=== PATIENT | female | born 1975 | race Caucasian/White ===

== ENCOUNTER 2017-12-16 15:21 | Inpatient (IN) | payer OTHER ==
[2017-12-16 19:07] VITALS: BMI 36.0
--- NOTE | 2017-12-16 20:57 | HP ---
COWS - Scale Resting Pulse: 1= ID [id number] Sweatin= Chills/Flushing Restless Observation: 1= Difficult to Sit Still Pupil Size: 1= Pupils >than Normal Bone or Joint Aches: 1= Mild Discomfort Runny Nose/ Eye Tearin= Runny Nose/Eyes GI Upset > 30mins: 3= Vomiting/Diarrhea Tremor Observation: 2= Slight Tremor Visible Yawning Observation: 2= >3x During Session Anxiety or Irritability: 2=Irritable/Anxious Goose Flesh Skin: 0=Smooth Skin COWS Score: 16 Admission ROS [facility] - [facility] Chief Complaint: " I need to get clean for my son" opioid withdrawal symptoms Allergies/Adverse Reactions: Allergies Allergy/AdvReac Type Severity Reaction Status Date / Time Fish Containing Products Allergy Verified 12/16/17 19:33 peanut Allergy Verified 12/16/17 19:33 Penicillins Allergy Verified 12/16/17 19:33 History of Present Illness: Patient is a 42 yo female with hx of cocaine, IV heroin, and nicotine dependence is here seeking detox. Last detox 3 years ago at [facility]. PMHX: seizure d/o , anemia,asthma, depression, anxiety, bipolar, PTSD, schizo. Denies suicidal / homicidal ideation, reports hx of suicide attempt at 18 yrs old by laceration wrist. Currently denies auditory or visual hallucinations, reports has had hallucinations in the past. Longest period of sobriety eight years. Denies hx of overdose. Reference #: [id number] Others' Prescriptions Patient Name: Kym Hampton Date: 1975 Address: [address] [place] [address] Sex: Female Rx Written Rx Dispensed Drug Quantity Days Supply Prescriber Name 12/02/2017 12/02/2017 alprazolam 1 mg tablet 90 30 Alejandro Tsai MD 12/02/2017 12/02/2017 zolpidem tartrate 5 mg tablet 30 30 Alejandro Tsai MD Exam Limitations: No Limitations - Ebola screening Have you traveled outside of the country in the last 21 days: No (N) Have you had contact with anyone from an Ebola affected area: No Have you been sick,other than usual withdrawal symptoms: No Do you have a fever: No - Review of Systems Constitutional: Chills, Other (weight gain) EENT: reports: No Symptoms Reported Respiratory: reports: No Symptoms reported Cardiac: reports: No Symptoms Reported GI: reports: Diarrhea, Nausea, Poor Appetite, Vomiting : reports: Dysuria, Hematuria, Other (urinary leakage) Musculoskeletal: reports: Back Pain, Joint Pain Integumentary: reports: No Symptoms Reported Neuro: reports: Headache, Seizure (last seizure one week ago), Tingling (b/t tip fingertips), Weakness Endocrine: reports: Increased Thirst Hematology: reports: No Symptoms Reported Psychiatric: reports: Orientated x3, Anxious, Depressed Other Systems: Reviewed and Negative Patient History - Patient Medical History Hx Anemia: Yes (no hx transfusion ) Hx Asthma: Yes Hx Chronic Obstructive Pulmonary Disease (COPD): No Hx Cancer: No Hx Cardiac Disorders: No Hx Hypertension: No Hx Hypercholesterolemia: No Hx Pacemaker: No HX Cerebrovascular Accident: No Hx Seizures: Yes (12/07/17) Hx Dementia: No Hx Diabetes: No Hx Gastrointestinal Disorders: No Hx Liver Disease: No Hx Genitourinary Disorders: No Hx Sexually Transmitted Disorders: No Hx Renal Disease (ESRD): No Hx Thyroid Disease: No Hx Human Immunodeficiency Virus (HIV): No Hx Hepatitis C: No Hx Depression: Yes Hx Suicide Attempt: Yes (18 yo by wrist lacertaion ) Hx Bipolar Disorder: Yes Hx Schizophrenia: Yes - Patient Surgical History Past Surgical History: No - PPD History Previous Implant?: No Documented Results: Negative w/o proof Implanted On Prior R Admission?: No PPD to be Administered?: Yes - Reproductive History Patient is a Female of Child Bearing Age (11 -55 yrs old): Yes (post menopausal ) Patient : No - Smoking Cessation Smoking history: Current every day smoker Aproximately how many cigarettes per day: 20 Hx Chewing Tobacco Use: No Initiated information on smoking cessation: Yes 'Breaking Loose' booklet given: 12/16/17 - Substance & Tx. History Hx Alcohol Use: Yes Hx Substance Use: Yes Substance Use Type: Cocaine, Heroin Hx Substance Use Treatment: Yes ([facility] last detox 3 years ago ) - Substances Abused Heroin Route: Injection Frequency: Daily Amount used: 2 bundle (20 BAGS) Age of first use: 19 Date of Last Use: 12/16/17 Family Disease History - Family Disease History Family History: Unable to Obtain Admission Physical Exam S - Vital Signs Vital Signs: Vital Signs - 24 hr 12/16/17 19:05 Temperature 99.4 F Pulse Rate 81 Respiratory 18 Rate Blood Pressure 105/69 - Physical General Appearance: Yes: Disheveled, Mild Distress, Obese, Sweating HEENTM: Yes: EOMI, Hearing grossly Normal, Normal ENT Inspection, Normocephalic , Normal Voice, RACHAEL, Pharynx Normal, Tm's normal Respiratory: Yes: Chest Non-Tender, Lungs Clear, Normal Breath Sounds, No Respiratory Distress, No Accessory Muscle Use Neck: Yes: Within Normal Limits Breast: Yes: Breast Exam Deferred Cardiology: Yes: Regular Rhythm, Regular Rate Abdominal: Yes: Normal Bowel Sounds, Non Tender, Soft, Protuberent Cleared for Admission [facility] - Detox or Rehab [facility] Level of Care: Medically Managed Detox Regimen/Protocol: Methadone [facility] Breath Alcohol Content Breath Alcohol Content: 0 Urine Pregancy Test - Result Urine Test Results: Negative- NO Line Present Urine Drug Screen - Results Drug Screen Negative: No Urine Drug Screen Results: ANJELICA-Cocaine, OPI-Opiates, BZO-Benzodiazepines
[2017-12-16] MEDS ORDERED: LOPERAMIDE HCL 2 MG CAPSULE PO PRN (21:01)
[2017-12-16] MEDS ORDERED: MAG HYDROX/AL HYDROX/SIMETH 30 ML UNIT-DOSE CUP PO PRN (21:01)
[2017-12-16] MEDS ORDERED: MAGNESIUM CITRATE 300 ML BOTTLE PO PRN (21:01)
[2017-12-16] MEDS ORDERED: IBUPROFEN 400 MG TABLET (FP) PO PRN (21:01)
[2017-12-16] MEDS ORDERED: ACETAMINOPHEN 325 MG TABLET (FP) PO PRN (21:01)
[2017-12-16] MEDS ORDERED: MAGNESIUM HYDROX 2400MG/30ML ORAL SUSPENSION 30 ML CUP PO PRN (21:01)
[2017-12-16] MEDS ORDERED: guaiFENesin/D-METHORPHAN HB 10 ML UNIT-DOSE CUPS PO PRN (21:01)
[2017-12-16] MEDS ORDERED: MENTHOL/PHENOL 1 EACH UD MM PRN (21:01)
[2017-12-16] MEDS ORDERED: P-EPHED 60MG/TRIPROLIDI 2.5MG TABLET PO PRN (21:01)
[2017-12-16] MEDS ORDERED: ONDANSETRON *ODT* 4 MG TABLET SL PRN (21:11)
[2017-12-16] MEDS ORDERED: METHADONE HCL 10 MG TABLET (FOR DETOX USE ONLY) PO ONE ×2 (21:30→23:00)
[2017-12-16] MEDS ORDERED: MELATONIN 5 MG TABLETS PO PRN (22:00)
[2017-12-16] MEDS: THIAMINE HCL 100 MG TABLET (FP) PO SCH (22:51)
[2017-12-16] MEDS: diazePAM 5 MG TABLET PO PRN (22:51)
[2017-12-17 00:15] LABS: URINE APPEARANCE CLEAR; URINE BILIRUBIN NEGATIVE (<2.0 mg/dL); URINE COLOR DKYELLOW; URINE GLUCOSE (UA) NEGATIVE (NEGATIVE); URINE KETONE NEGATIVE (NEGATIVE); URINE LEUK ESTERASE TRACE (NEGATIVE); URINE NITRITE NEGATIVE (NEGATIVE); URINE PROTEIN NEGATIVE (NEGATIVE)
[2017-12-17 01:27] LABS: CALCIUM OXALATE CRYSTALS MODERATE /hpf (NONE SEEN); EPI CELLS RARE /HPF (FEW); URINE BACTERIA RARE /hpf (NONE SEEN)
--- NOTE | 2017-12-17 09:57 | PN ---
[facility]HS COWS - Scale Resting Pulse: 0= [place] 80 or Below Sweatin= Chills/Flushing Restless Observation: 3= Extraneous Movement Pupil Size: 1= Pupils >than Normal Bone or Joint Aches: 2= Severe Diffuse Aches Runny Nose/ Eye Tearin= Runny Nose/Eyes GI Upset > 30mins: 2= Nausea/Diarrhea Tremor Observation of Outstretched Hands: 2= Slight Tremor Visible Yawning Observation: 1= 1-2x During Session Anxiety or Irritability: 2=Irritable/Anxious Goose Flesh Skin: 0=Smooth Skin COWS Score: 16 BHS Progress Note (SOAP) Subjective: alert,irritable,anxious,interrupted sleep,tremor,pain in the body Objective: 12/17/17 09:54 Vital Signs Temperature 98.2 F 12/17/17 09:18 Pulse Rate 67 12/17/17 09:18 Respiratory Rate 18 12/17/17 09:18 Blood Pressure 118/70 12/17/17 09:18 O2 Sat by Pulse Oximetry (%) 12/17/17 09:55 ekg nsr,unifocal vpc 67/min qt/qtc 398/420 no chest pain,no sob,no dizziness Laboratory Last Values Urine Color Dkyellow 12/16/17 23:50 Urine Appearance Clear 12/16/17 23:50 Urine pH 5.0 (5.0-8.0) 12/16/17 23:50 Ur Specific [place] 1.025 (1.001-1.035) 12/16/17 23:50 Urine Protein Negative (NEGATIVE) 12/16/17 23:50 Urine Glucose (UA) Negative (NEGATIVE) 12/16/17 23:50 Urine Ketones Negative (NEGATIVE) 12/16/17 23:50 Urine Blood Negative (NEGATIVE) 12/16/17 23:50 Urine Nitrite Negative (NEGATIVE) 12/16/17 23:50 Urine Bilirubin Negative (<2.0 mg/dL) 12/16/17 23:50 Urine Urobilinogen 2.0 mg/dL (0.2-1.0) H 12/16/17 23:50 Ur Leukocyte Esterase Trace (NEGATIVE) 12/16/17 23:50 Urine WBC (Auto) 10 /hpf (3-5) 12/16/17 23:50 Urine RBC (Auto) 16 /hpf (0-3) 12/16/17 23:50 Ur Epithelial Cells Rare /HPF (FEW) 12/16/17 23:50 Calcium Oxalate Crystal Moderate /hpf (NONE SEEN) 12/16/17 23:50 Urine Bacteria Rare /hpf (NONE SEEN) 12/16/17 23:50 labs pending Assessment: 12/17/17 09:57 withdrawal symptom Plan: continue detox,repeat ua
[2017-12-17] MEDS ORDERED: METHADONE HCL 10 MG TABLET (FOR DETOX USE ONLY) PO ONE (10:00)
[2017-12-17] MEDS: PRENATAL VITAMINS W/ FOLIC ACID TABLET (FP) PO SCH (12:00)
--- NOTE | 2017-12-17 12:07 | EKG ---
Test Reason : Blood Pressure : / mmHG Vent. Rate : 067 BPM Atrial Rate : 067 BPM P-R Int : 144 ms QRS Dur : 090 ms QT Int : 398 ms P-R-T Axes : 057 074 024 degrees QTc Int : 420 ms SINUS RHYTHM WITH FREQUENT PREMATURE VENTRICULAR COMPLEXES OTHERWISE NORMAL ECG NO PREVIOUS ECGS AVAILABLE Confirmed by JAMAAL MORAN MD ([id number]) on 12/17/2017 12:07:07 PM Referred By: Confirmed By:JAMAAL MORAN MD
--- NOTE | 2017-12-17 15:22 | CONSULT ---
[facility] Psychiatric Consult - Data Date of interview: 12/17/17 Admission source: [facility] Identifying data: Patient is a 42 year old single female, mother of seven, domiciled, and currently unemployed. This is patient's first admission to detox at [facility]. Patient admitted to for cocaine and opiate dependence. Substance Abuse History: - Smoking Cessation. Smoking history: Current every day smoker. Aproximately how many cigarettes per day: 20. Hx Chewing Tobacco Use: No. Initiated information on smoking cessation: Yes. 'Breaking Loose' booklet given: 12/16/17. - Substance & Tx. History. Hx Alcohol Use: Yes. Hx Substance Use: Yes. Substance Use Type: Cocaine, Heroin. Hx Substance Use Treatment: Yes ([facility] last detox 3 years ago ). - Substances Abused. Heroin. Route: Injection. Frequency: Daily. Amount used: 2 bundle (20 BAGS). Age of first use: 19. Date of Last Use: 12/16/17 Medical History: Anemia, Asthma, Seizures Psychiatric History: Patient presented as lethargic and slightly irritable. Pt. denies h/o psychiatric hospitalization. Pt. unable to recall her current OPD and medication regime. As per pharmacy claims, an electronic prescription of Zoloft 50mg + Ambien 5mg + Prozasin + Xanac was sent to patient's pharmacy on 12/02/17. Pt. refuses to accept psychotropic medications at the moment and also reports nonadherence to her medication regime. Pt. reports several suicide attempts but stated "it was a very long time ago." Pt. currently denies suicidal and homicidal ideation. Physical/Sexual Abuse/Trauma History: Denies. Mental Status Exam - Mental Status Exam Alert and Oriented to: Time, Place, Person Cognitive Function: Good Patient Appearance: Unkempt Mood: Withdrawn, Irritable Affect: Mood Congruent Patient Behavior: Sedated, Fatigued Speech Pattern: Delayed Voice Loudness: Moderately Soft/Quiet Thought Process: Goal Oriented Thought Disorder: Not Present Hallucinations: Denies Suicidal Ideation: Denies Homicidal Ideation: Denies Insight/Judgement: Poor Sleep: Fair Appetite: Fair Muscle strength/Tone: Normal Gait/Station: Normal Psychiatric Findings - Problem List ([place] 1, 2,3) (1) Substance induced mood disorder Current Visit: Yes Status: Acute (2) Cocaine dependence Current Visit: Yes Status: Acute Qualifiers: Substance use status: uncomplicated Qualified Code(s): F14.20 - Cocaine dependence, uncomplicated (3) Nicotine dependence Current Visit: Yes Status: Acute Qualifiers: Nicotine product type: cigarettes Substance use status: in withdrawal Qualified Code(s): F17.213 - Nicotine dependence, cigarettes, with withdrawal (4) Opioid dependence with withdrawal Current Visit: Yes Status: Acute (5) Obese Current Visit: Yes Status: Acute Qualifiers: Obesity type: unspecified obesity type Obesity classification: adult class 2 (BMI 35 - 39.9) Body mass index: BMI 36.0-36.9 - Initial Treatment Plan Initial Treatment Plan: Psychoeducation provided. Detoxification in progress. Observation.
[2017-12-17] MEDS: THIAMINE HCL 100 MG TABLET (FP) PO SCH (22:12)
[2017-12-17] MEDS: diazePAM 5 MG TABLET PO PRN (22:12)
[2017-12-18] MEDS: diazePAM 5 MG TABLET PO PRN ×3 (02:15→10:51)
[2017-12-18] MEDS ORDERED: TRIMETHOBENZAMIDE HCL 200MG/2ML INJ IM PRN (08:33)
[2017-12-18] MEDS ORDERED: METHADONE HCL 5 MG TABLET (FOR DETOX USE ONLY) PO ONE (10:00)
[2017-12-18 10:44] LABS: HEMATOCRIT 38.2 % (32.4-45.2); HEMOGLOBIN 13.1 GM/dL (10.7-15.3); MCH 30.7 pg (25.7-33.7); MCHC 34.3 g/dl (32.0-36.0); MEAN CELL VOLUME 89.5 fl (80-96); MEAN PLT VOLUME 10.8 fl (7.5-11.1); PLATELET COUNT 145 K/MM3 (134-434); RBC 4.26 M/mm3 (3.60-5.2); RDW 12.9 % (11.6-15.6); WHITE BLOOD COUNT 6.8 K/mm3 (4.0-10.0)
[2017-12-18 10:57] LABS: CALCIUM 9.1 mg/dL (8.5-10.1); CHLORIDE 105 mmol/L (98-107); POTASSIUM 3.7 mmol/L (3.5-5.1); SODIUM 140 mmol/L (136-145)
[2017-12-18 11:04] LABS: ALBUMIN 3.7 g/dl (3.4-5.0); ALK PHOS 94 U/L (45-117); ANION GAP 10 (8-16); BILIRUBIN,TOTAL 0.6 mg/dL (0.2-1.0); BLOOD UREA NITROGEN 8 mg/dL (7-18); CO2 25 mmol/L (21-32); CREATININE 0.7 mg/dL (0.55-1.02); GLUCOSE,RANDOM 122 mg/dL (74-106); SGOT/AST 26 U/L (15-37); SGPT/ALT 22 U/L (12-78); TOT PROT 6.7 g/dl (6.4-8.2)
[2017-12-18] MEDS: PRENATAL VITAMINS W/ FOLIC ACID TABLET (FP) PO SCH (11:13)
[2017-12-18 11:25] VITALS: BP 123/60; PULSE 66; TEMP 97.1
[2017-12-18] MEDS ORDERED: CYCLOBENZAPRINE HCL 10 MG TABLET (FP) PO PRN (11:43)
--- NOTE | 2017-12-18 11:50 | PN ---
BHS COWS - Scale Resting Pulse: 0= [place] 80 or Below Sweatin= Chills/Flushing Restless Observation: 3= Extraneous Movement Pupil Size: 1= Pupils >than Normal Bone or Joint Aches: 2= Severe Diffuse Aches Runny Nose/ Eye Tearin= Runny Nose/Eyes GI Upset > 30mins: 2= Nausea/Diarrhea Tremor Observation of Outstretched Hands: 2= Slight Tremor Visible Yawning Observation: 1= 1-2x During Session Anxiety or Irritability: 2=Irritable/Anxious Goose Flesh Skin: 0=Smooth Skin COWS Score: 16 S Progress Note (SOAP) Subjective: alert,irritable,anxious,interrupted sleep,tremor,nausea,vomiting,pain in the body and back Objective: 12/18/17 11:46 Vital Signs Temperature 97.1 F L 12/18/17 10:00 Pulse Rate 66 12/18/17 10:00 Respiratory Rate 22 12/18/17 10:00 Blood Pressure 123/60 12/18/17 10:00 O2 Sat by Pulse Oximetry (%) Laboratory Last Values WBC 6.8 K/mm3 (4.0-10.0) 12/18/17 07:54 RBC 4.26 M/mm3 (3.60-5.2) 12/18/17 07:54 Hgb 13.1 GM/dL (10.7-15.3) 12/18/17 07:54 Hct 38.2 % (32.4-45.2) 12/18/17 07:54 MCV 89.5 fl (80-96) 12/18/17 07:54 MCH 30.7 pg (25.7-33.7) 12/18/17 07:54 MCHC 34.3 g/dl (32.0-36.0) 12/18/17 07:54 RDW 12.9 % (11.6-15.6) 12/18/17 07:54 Plt Count 145 K/MM3 (134-434) 12/18/17 07:54 MPV 10.8 fl (7.5-11.1) 12/18/17 07:54 Sodium 140 mmol/L (136-145) 12/18/17 07:54 Potassium 3.7 mmol/L (3.5-5.1) 12/18/17 07:54 Chloride 105 mmol/L (98-107) 12/18/17 07:54 Carbon Dioxide 25 mmol/L (21-32) 12/18/17 07:54 Anion Gap 10 (8-16) 12/18/17 07:54 BUN 8 mg/dL (7-18) 12/18/17 07:54 Creatinine 0.7 mg/dL (0.55-1.02) 12/18/17 07:54 Creat Clearance w eGFR > 60 (>60) 12/18/17 07:54 Random Glucose 122 mg/dL (74-106) H 12/18/17 07:54 Calcium 9.1 mg/dL (8.5-10.1) 12/18/17 07:54 Total Bilirubin 0.6 mg/dL (0.2-1.0) 12/18/17 07:54 AST 26 U/L (15-37) 12/18/17 07:54 ALT 22 U/L (12-78) 12/18/17 07:54 Alkaline Phosphatase 94 U/L (45-117) 12/18/17 07:54 Total Protein 6.7 g/dl (6.4-8.2) 12/18/17 07:54 Albumin 3.7 g/dl (3.4-5.0) 12/18/17 07:54 Urine Color Dkyellow 12/16/17 23:50 Urine Appearance Clear 12/16/17 23:50 Urine pH 5.0 (5.0-8.0) 12/16/17 23:50 Ur Specific [place] 1.025 (1.001-1.035) 12/16/17 23:50 Urine Protein Negative (NEGATIVE) 12/16/17 23:50 Urine Glucose (UA) Negative (NEGATIVE) 12/16/17 23:50 Urine Ketones Negative (NEGATIVE) 12/16/17 23:50 Urine Blood Negative (NEGATIVE) 12/16/17 23:50 Urine Nitrite Negative (NEGATIVE) 12/16/17 23:50 Urine Bilirubin Negative (<2.0 mg/dL) 12/16/17 23:50 Urine Urobilinogen 2.0 mg/dL (0.2-1.0) H 12/16/17 23:50 Ur Leukocyte Esterase Trace (NEGATIVE) 12/16/17 23:50 Urine WBC (Auto) 10 /hpf (3-5) 12/16/17 23:50 Urine RBC (Auto) 16 /hpf (0-3) 12/16/17 23:50 Ur Epithelial Cells Rare /HPF (FEW) 12/16/17 23:50 Calcium Oxalate Crystal Moderate /hpf (NONE SEEN) 12/16/17 23:50 Urine Bacteria Rare /hpf (NONE SEEN) 12/16/17 23:50 Assessment: 12/18/17 11:50 withdrawal symptom Plan: continue detox,tigan 200 mgs im q 8 hrs prn for vomiting,flexeril 10 mgs po tid prn, psychiatric reevaluation for insomnia close monitoring
--- NOTE | 2017-12-18 11:56 | PN ---
[facility] Progress Note Note: patient did not want to complete treatment,all attempts to convince patient to stay with no avail, signed release ama,risks and benefit explained,seen by counselor, advise to go to nearest er if medical emergency
--- NOTE | 2017-12-18 12:00 | DS ---
[facility] Detox Discharge Summary Admission Date: 12/16/17 Discharge Date: 12/18/17 - History Present History: Cocaine Dependence, Opioid Dependence Additional Comments: patient did not want to complete treatment,declined to give reason,all attempts to convince patient to stay with no avail, signed release ama,seen by counselor Pertinent Past History: nicotine dependence seizure disorder - Physical Exam Results Vital Signs: Vital Signs Temperature 97.1 F L 12/18/17 10:00 Pulse Rate 66 12/18/17 10:00 Respiratory Rate 22 12/18/17 10:00 Blood Pressure 123/60 12/18/17 10:00 O2 Sat by Pulse Oximetry (%) Pertinent Admission Physical Exam Findings: withdrawal signs and symptom 12/18/17 12/18/17 07:54 07:54 WBC 6.8 RBC 4.26 Hgb 13.1 Hct 38.2 MCV 89.5 MCHC 34.3 RDW 12.9 Plt Count 145 Sodium 140 Potassium 3.7 Chloride 105 Carbon Dioxide 25 Anion Gap 10 BUN 8 Creatinine 0.7 Vital Signs Temperature 97.1 F L 12/18/17 10:00 Pulse Rate 66 12/18/17 10:00 Respiratory Rate 22 12/18/17 10:00 Blood Pressure 123/60 12/18/17 10:00 O2 Sat by Pulse Oximetry (%) - Medication Discharge Medications: Ambulatory Orders Alprazolam [Xanax] 2 mg PO BID 12/16/17 Prazosin HCl [Minipress] 5 mg PO HS 12/16/17 Sertraline HCl [Zoloft -] 50 mg PO DAILY 12/16/17 Zolpidem Tartrate [Ambien] 10 mg PO HS 12/16/17 - Diagnosis (1) Opioid dependence with withdrawal Current Visit: Yes Status: Acute (2) Cocaine dependence Current Visit: Yes Status: Acute Qualifiers: Substance use status: uncomplicated Qualified Code(s): F14.20 - Cocaine dependence, uncomplicated (3) Nicotine dependence Current Visit: Yes Status: Acute Qualifiers: Nicotine product type: cigarettes Substance use status: in withdrawal Qualified Code(s): F17.213 - Nicotine dependence, cigarettes, with withdrawal (4) Seizure disorder Current Visit: Yes Status: Acute - AMA Did Patient Leave Against Medical Advice: Yes
[2017-12-18 12:47] LABS: RPR NONREACTIVE (NONREACTIVE)
[2017-12-19] MEDS ORDERED: METHADONE HCL 5 MG TABLET (FOR DETOX USE ONLY) PO ONE (10:00)
[2017-12-20] MEDS ORDERED: METHADONE HCL 10 MG TABLET (FOR DETOX USE ONLY) PO ONE (10:00)
[2017-12-21] MEDS ORDERED: METHADONE HCL 5 MG TABLET (FOR DETOX USE ONLY) PO ONE (06:00)
== END 2017-12-18 12:06 | disposition left against medical advice (07) | DRG 770 ==
LOC: YASAS 15:21 → Y6N 19:49
PROVIDERS: ADMIT Surgery; ATTEND Surgery
PROC: HZ2ZZZZ Detoxification Services for Substance Abuse Treatment (ICD-10-PCS; principal; 2017-12-16)
DX: F11.23 Opioid dependence with withdrawal (principal); F14.20 Cocaine dependence, uncomplicated; F17.213 Nicotine dependence, cigarettes, with withdrawal; F19.24 Other psychoactive substance dependence with psychoactive substance-induced mood disorder; G40.909 Epilepsy, unspecified, not intractable, without status epilepticus; R30.0 Dysuria; E66.9 Obesity, unspecified; Z68.36 Body mass index [BMI] 36.0-36.9, adult; Z88.0 Allergy status to penicillin; Z91.013 Allergy to seafood; Z91.010 Allergy to peanuts
CPT/HCPCS: 36415; 80053; 81003; 81015; 85027; 86593; 87389; 93005; 93010; Q0162